=== PATIENT | female | born 1990 | race Caucasian/White ===

== ENCOUNTER 2016-07-11 10:17 | Day surgery (SDC) | payer OTHER ==
[~2016-07-11] VITALS: Ht 165.1 cm; Wt 105.0 kg
[~2016-07-11 10:17] MED LIST: OMEP40CA36 PO; PREN-57 PO; SERT50TA PO; Sodium Chloride LOK Flush 10 mL Syringe IV PRN; fentaNYL-PF 50 mCg/mL 2 mL Inj IVPUSH PRN
[2016-07-11 10:33] VITALS: BP 111/65; PULSE 92; RESP 14; O2SAT 98
[2016-07-11] MEDS: 0.9% Sodium Chloride 1,000 ML IV PRN ×2 (11:12→11:32)
[2016-07-11 11:41] VITALS: BP 101/64; PULSE 65; RESP 15; O2SAT 95
[2016-07-11 11:50] VITALS: BP 99/54; PULSE 62; RESP 15; O2SAT 98
[2016-07-11 12:00] VITALS: BP 91/49; PULSE 60; RESP 15; O2SAT 99
--- NOTE | 2016-07-11 12:20 | ENDO ---
[address] [address] ENDOSCOPY PROCEDURE PATIENT: ALBERTINA SINGLETARY : 1990 MR#: [id number] ADMIT: 07/11/2016 JOB ID: [id number] PRIMARY PROVIDER: Nicole Schilling PA-C PROCEDURE: Esophagogastroduodenoscopy with biopsies. INDICATIONS: A 26-year-old female with chronic GERD. She had a positive H. pylori antibody in the summer of 2015. She remains relatively asymptomatic on once daily omeprazole 20 mg. EQUIPMENT: GIF-H190. SEDATION: Versed 6 mg and 75 mcg fentanyl. COMPLICATIONS: None identified. PROCEDURE IN DETAIL: After the risks and benefits were explained, written and verbal informed consent was obtained. The patient was brought into the endoscopy suite placed into the left lateral decubitus position. Sedation was achieved using the above-stated medications with the addition of oxygen via nasal cannula. The scope was introduced into the mouth through the bite block and advanced to the second portion of the duodenum. The scope was slowly withdrawn while carefully examining the mucosa for any defects or lesions. Retroflexed views were accomplished in the stomach, the stomach was decompressed, and the scope removed from the patient, who tolerated the procedure reasonably well. FINDINGS: 1. Duodenum: This appeared visually normal from the bulb through to the second portion. 2. Stomach: No ulcers, no outlet obstruction. No mass lesions. Diffuse mild gastropathy was noted throughout with several small benign appearing gastric polyps in the body and fundus region. Three of these were sampled for histopathologic analysis. Otherwise, retroflexed views of the LES were unremarkable. 3. Esophagus: The squamocolumnar junction correlated with the top of the gastric folds. The GEJ was at about 36 cm from the incisors. No acute erosive changes. No strictures. No mass lesions. No pathology appreciated in the esophagus. Perhaps a very subtle sliding hiatal hernia was noted. ENDOSCOPIC DIAGNOSES: 1. Subtle sliding hiatal hernia. 2. Gastropathy. 3. Diminutive gastric polyps. RECOMMENDATIONS: 1. Await histopathology. 2. If Helicobacter is found, it will need to be eradicated with standard triple therapy, recognizing that the patient is involved in at the moment. 3. She is encouraged to pump and discard this afternoon before resuming this evening. 4. The patient has not been taking her PPI in an optimal fashion. I encouraged her take it about 30 minutes before either her first or last meal of the day rather than at bedtime. 5. Additionally she is encouraged to engage in lifestyle modifications that would facilitate weight loss as this will almost certainly reduced her incidence and tendency to reflux. 6. Follow up GI Clinic in the next 6-8 weeks with Snehal Gilmore PA-C.
--- NOTE | 2016-07-13 10:37 | PATH ---
SURGICAL PATHOLOGY Attending Physician:Nancy Virgen CASE STATUS: Signed Out PATIENT NAME: ALBERTINA SINGLETARY PID: [id number] : 1990 DATE COLLECTED:07/11/2016 22:59 SPECIMEN: Stomach, Polyp, Biopsy CLINICAL HISTORY: GERD 1). GASTRIC POLYP BIOPSY FINAL DIAGNOSIS: 1.GASTRIC POLYP BIOPSY: BENIGN FUNDIC GLAND POLYP INVOLVING ALL THREE BIOPSY FRAGMENTS. Negative for evidence of Helicobacter. Negative for intestinal metaplasia. Negative for dysplasia and malignancy. ICD10 code K31.7 GROSS DESCRIPTION: The specimen is received in one formalin filled container labeled with the patient's name, sublabeled "gastric polyp" and consists of 3 portions of tissue which aggregate to 0.3 x 0.3 x 0.3 CM. The specimen is entirely submitted in one cassette. 07/12/2016 [facility] MICRO DESCRIPTION: See diagnosis. ICD-9 CODES: CPT CODES: 1: 49052 Electronically Signed Out Rob Godwin MD [facility] [address], [place] [address] Technical component performed at [facility], [address] [place] [address] Ave[address], [place], [address]
== END 2016-07-11 23:59 | disposition home or self-care (01) ==
LOC: END 10:17
PROVIDERS: ATTEND Internal Medicine Gastroenterology
DX: D13.1 Benign neoplasm of stomach (principal); K21.9 Gastro-esophageal reflux disease without esophagitis; F41.8 Other specified anxiety disorders; K44.9 Diaphragmatic hernia without obstruction or gangrene
CPT/HCPCS: 43239; 88305; G0500; J2250; J3010; J7030